=== PATIENT | female | born 1990 | race Two or more races ===

== ENCOUNTER 2023-02-28 10:00 | Emergency (ER) | payer MEDICAID ==
[~2023-02-28] VITALS: Ht 154.9 cm; Wt 68.5 kg
[2023-02-28 10:11] VITALS: O2SAT 100
[2023-02-28] MEDS ORDERED: PSEU120T56 MT (10:31)
[2023-02-28 10:56] VITALS: BP 155/104; PULSE 101; RESP 16; TEMP 98.3
== END 2023-02-28 10:57 | disposition home or self-care (01) ==
LOC: ER 10:00
DX: J02.9 Acute pharyngitis, unspecified (principal); Z88.5 Allergy status to narcotic agent
CPT/HCPCS: 99282